=== PATIENT | male | born 1975 | race Caucasian/White ===

== ENCOUNTER 2018-04-07 13:42 | Emergency (ER) | payer OTHER, BC ==
[2018-04-07] MEDS: IBUPROFEN 800 MG TAB PO (14:00)
== END 2018-04-07 15:04 | disposition home or self-care (01) ==
LOC: M ED 13:42
DX: S00.33XA Contusion of nose, initial encounter (principal); S49.91XA Unspecified injury of right shoulder and upper arm, initial encounter; Y04.8XXA Assault by other bodily force, initial encounter; Y07.59 Other non-family member, perpetrator of maltreatment and neglect; Y92.59 Other trade areas as the place of occurrence of the external cause; Y99.0 Civilian activity done for income or pay
CPT/HCPCS: 70160